=== PATIENT | male | born 1960 | race Caucasian/White ===

== ENCOUNTER → 2019-04-24 | Outpatient (CLI) | payer OTHER, MEDICARE ==
[~2019-04-24] MED LIST: ALPR.5 PO; AVAPRO PO; CARV6.25 PO; HYDCHL25 PO; NEBI10 PO; OLME20 PO; OMEPRAZOLE MAGN20 MG PO; PARO30 PO
== END | disposition home or self-care (01) ==
LOC: LAB SHORT 10:47 → LAB EV 10:47
DX: M79.672 Pain in left foot (principal)
CPT/HCPCS: 84550

== ENCOUNTER → 2023-09-16 | Outpatient (CLI) | payer OTHER, MEDICARE | LOC: LAB SHORT 11:51 → LAB 11:51 | DX: L03.90 Cellulitis, unspecified (principal) | CPT/HCPCS: 87070; 87205 ==